=== PATIENT | female | born 1955 | race African-American/Black ===

== ENCOUNTER 2017-08-13 05:28 | Inpatient (IN) ==
[2017-08-13] MEDS ORDERED: VANCOMYCIN INJ 1,000 MG in SODIUM CHLORIDE 0.9% 250 ML IV ONE ×2 (06:00→23:00)
[2017-08-13] MEDS ORDERED: ceFAZolin 2,000 MG in PREMIX 1 EACH IV ONE (06:00)
[2017-08-13] MEDS ORDERED: VANCOMYCIN 1,000 MG VIAL ONE (06:06)
[2017-08-13] MEDS ORDERED: LACTATED RINGERS 1,000 ML IV SCH (08:00)
[2017-08-13] MEDS ORDERED: MIDAZOLAM 10 MG/2 ML VIAL ONE (08:48)
[2017-08-13] MEDS ORDERED: ePHEDrine 50 MG/ML AMP ONE (08:48)
[2017-08-13] MEDS ORDERED: SUFentanil 250 MCG/5 ML AMP ONE (08:49)
[2017-08-13] MEDS ORDERED: PANTOPRAZOLE 40 MG TABLET PO ONE ×2 (09:41→10:00)
[2017-08-13] MEDS ORDERED: TRANEXAMIC ACID 1,000 MG/10 ML VIAL ONE (12:26)
[2017-08-13] MEDS ORDERED: MAGNESIUM HYDROXIDE SUSP 30 ML UDCUP PO PRN (13:50)
[2017-08-13] MEDS ORDERED: MORPHINE 4 MG/1 ML VIAL IV PRN (13:50)
[2017-08-13] MEDS ORDERED: oxyCODONE IR 5 MG TABLET PO PRN ×2 (13:50)
[2017-08-13] MEDS ORDERED: ONDANSETRON 4 MG/2 ML VIAL IV PRN ×2 (13:50→14:14)
[2017-08-13] MEDS ORDERED: FLUTICASONE 50 MCG NASAL SPRAY 16 GM BOTTLE BOTH NARES PRN (13:52)
[2017-08-13] MEDS ORDERED: ONDANSETRON 4 MG/2 ML VIAL ONE (14:02)
[2017-08-13] MEDS ORDERED: MORPHINE 10 MG/1 ML VIAL ONE (14:02)
[2017-08-13] MEDS: MORPHINE 10 MG/1 ML VIAL IV PRN ×3 (14:03→14:20)
[2017-08-13] MEDS ORDERED: SEVOFLURANE 1 UNIT/15 MINUTE INH ONE (14:16)
[2017-08-13] MEDS ORDERED: PROPOFOL 200 MG/20 ML VIAL IV ONE (14:16)
[2017-08-13] MEDS ORDERED: LIDOCAINE 1% 5 ML VIAL ONE (14:16)
[2017-08-13] MEDS ORDERED: ROCURONIUM 100 MG/10 ML VIAL IV ONE (14:17)
[2017-08-13] MEDS ORDERED: NEOSTIGMINE 10 MG/10 ML VIAL ONE (14:17)
[2017-08-13] MEDS ORDERED: SUCCINYLCHOLINE 200 MG/10 ML VIAL ONE (14:17)
[2017-08-13] MEDS ORDERED: fentaNYL 100 MCG/2 ML VIAL ONE (14:17)
[2017-08-13] MEDS ORDERED: ACETAMINOPHEN 1,000 MG/100 ML VIAL IV ONE (14:18)
[2017-08-13] MEDS ORDERED: GLYCOPYRROLATE 0.4 MG/2 ML VIAL ONE (14:18)
[2017-08-13] MEDS ORDERED: MIDAZOLAM 2 MG/2 ML VIAL ONE (14:35)
[2017-08-13] MEDS ORDERED: ROPIVACAINE 0.5% 30 ML VIAL ONE (15:10)
[2017-08-13] MEDS: MORPHINE 4 MG/1 ML VIAL IV PRN ×2 (17:00→21:11)
[2017-08-13] MEDS: KETOROLAC 30 MG/1 ML VIAL IV SCH ×2 (17:10→21:11)
[2017-08-13] MEDS: FUROSEMIDE 40 MG TABLET PO SCH (18:29)
[2017-08-13] MEDS: ACETAMINOPHEN 500 MG TABLET PO SCH ×2 (18:30→23:20)
[2017-08-13] MEDS: ZALEPLON 5 MG CAPSULE PO SCH (21:11)
[2017-08-13] MEDS: DOCUSATE SODIUM 100 MG CAPSULE PO SCH (21:11)
[2017-08-13] MEDS: ceFAZolin 2,000 MG in PREMIX 1 EACH IV SCH (23:23)
[2017-08-14] MEDS: ceFAZolin 2,000 MG in PREMIX 1 EACH IV SCH (02:51)
[2017-08-14] MEDS: KETOROLAC 30 MG/1 ML VIAL IV SCH ×2 (03:59→10:36)
[2017-08-14] MEDS: ACETAMINOPHEN 500 MG TABLET PO SCH ×2 (06:19→11:52)
[2017-08-14 06:58] LABS: Calcium 8.3 MG/DL (8.5-10.1); Osmolality,Calculated 274.7 MOS/KG (273-304); Potassium 4.6 MMOL/L (3.5-5.1)
[2017-08-14] MEDS: POTASSIUM CHLORIDE INJ 20 MEQ in LACTATED RINGERS 1,000 ML IV SCH ×3 (07:53→07:55)
[2017-08-14] MEDS: FUROSEMIDE 40 MG TABLET PO SCH ×2 (08:04→16:08)
[2017-08-14] MEDS: DOCUSATE SODIUM 100 MG CAPSULE PO SCH ×2 (08:04→21:06)
[2017-08-14] MEDS: PANTOPRAZOLE 40 MG TABLET PO SCH (08:04)
[2017-08-14 08:05] LABS: Basophils % 0.1 % (0.0-0.8); Eosinophils # 0.1 10*3/uL (0.0-0.87); Eosinophils % 1.7 % (0.00-10.9); Hematocrit 35.8 VOL% (35.7-47.0); Hemoglobin 11.3 GM/DL (12.0-16.0); Immature Granulocytes % 0.4 %; Immature Granulocytes Absolute 0.03 #; Lymphocytes # 0.6 10*3/uL (1.4-4.0); Lymphocytes % 6.8 % (21.3-54.2); Mean Corpuscular HGB Conc 31.6 GM/DL (32-36); Mean Corpuscular Hemoglobin 29 PG (27-34); Mean Corpuscular Volume 91.1 FL (87-102); Mean Platelet Volume 10.5 FL (9.6-12.0); Monocytes # 0.5 10*3/uL (0.11-0.8); Monocytes % 6.2 % (1.7-12.7); Neutrophils % 84.8 % (38.7-73.9); Platelet Count 238 T/CUMM (130-400); Red Blood Count 3.93 MC/CUMM (3.8-5.5); Red Cell Distribution Width 13.3 % (9.3-17.3); White Blood Count 8.3 T/CUMM (4-12)
[2017-08-14] MEDS: VALSARTAN 160 MG TABLET PO SCH (09:15)
[2017-08-14] MEDS: amLODIPine 10 MG TABLET PO SCH (09:15)
[2017-08-14] MEDS ORDERED: PANTOPRAZOLE 40 MG TABLET PO ONE (10:00)
[2017-08-14] MEDS: FONDAPARINUX 2.5 MG/0.5 ML SYRINGE SUBCUT SCH (10:05)
[2017-08-14] MEDS: diphenhydrAMINE CAP 25 MG CAPSULE PO PRN ×2 (10:05→17:14)
[2017-08-14] MEDS: CELECOXIB 200 MG CAPSULE PO SCH (21:06)
[2017-08-14] MEDS: ZALEPLON 5 MG CAPSULE PO SCH (21:06)
[2017-08-15] MEDS: diphenhydrAMINE CAP 25 MG CAPSULE PO PRN ×2 (05:56→14:19)
[2017-08-15 06:07] LABS: Basophils % 0.1 % (0.0-0.8); Eosinophils # 0.2 10*3/uL (0.0-0.87); Eosinophils % 1.6 % (0.00-10.9); Hematocrit 34.6 VOL% (35.7-47.0); Hemoglobin 10.9 GM/DL (12.0-16.0); Immature Granulocytes % 0.4 %; Immature Granulocytes Absolute 0.04 #; Lymphocytes # 0.6 10*3/uL (1.4-4.0); Lymphocytes % 6.4 % (21.3-54.2); Mean Corpuscular HGB Conc 31.5 GM/DL (32-36); Mean Corpuscular Hemoglobin 29 PG (27-34); Mean Corpuscular Volume 91.5 FL (87-102); Mean Platelet Volume 10.4 FL (9.6-12.0); Monocytes # 0.5 10*3/uL (0.11-0.8); Monocytes % 5.3 % (1.7-12.7); Neutrophils # 8.6 10*3/uL (1.4-7.4); Neutrophils % 86.2 % (38.7-73.9); Platelet Count 218 T/CUMM (130-400); Red Blood Count 3.78 MC/CUMM (3.8-5.5); Red Cell Distribution Width 13.7 % (9.3-17.3)
[2017-08-15] MEDS: FONDAPARINUX 2.5 MG/0.5 ML SYRINGE SUBCUT SCH (09:16)
[2017-08-15] MEDS: FUROSEMIDE 40 MG TABLET PO SCH ×2 (09:16→16:35)
[2017-08-15] MEDS: VALSARTAN 160 MG TABLET PO SCH (09:16)
[2017-08-15] MEDS: amLODIPine 10 MG TABLET PO SCH (09:16)
[2017-08-15] MEDS: PANTOPRAZOLE 40 MG TABLET PO SCH (09:16)
[2017-08-15] MEDS: DOCUSATE SODIUM 100 MG CAPSULE PO SCH ×2 (09:16→21:18)
[2017-08-15] MEDS: ZALEPLON 5 MG CAPSULE PO SCH (21:19)
[2017-08-15] MEDS: CELECOXIB 200 MG CAPSULE PO SCH (21:19)
[2017-08-16] MEDS: diphenhydrAMINE CAP 25 MG CAPSULE PO PRN (06:15)
[2017-08-16 06:26] LABS: Basophils % 0.1 % (0.0-0.8); Eosinophils # 0.2 10*3/uL (0.0-0.87); Eosinophils % 1.7 % (0.00-10.9); Hematocrit 32.2 VOL% (35.7-47.0); Hemoglobin 10.1 GM/DL (12.0-16.0); Immature Granulocytes % 0.5 %; Immature Granulocytes Absolute 0.05 #; Lymphocytes # 0.7 10*3/uL (1.4-4.0); Lymphocytes % 7.4 % (21.3-54.2); Mean Corpuscular HGB Conc 31.4 GM/DL (32-36); Mean Corpuscular Hemoglobin 29 PG (27-34); Mean Corpuscular Volume 91.7 FL (87-102); Mean Platelet Volume 10.8 FL (9.6-12.0); Monocytes # 0.4 10*3/uL (0.11-0.8); Monocytes % 4.2 % (1.7-12.7); Neutrophils # 8.7 10*3/uL (1.4-7.4); Neutrophils % 86.1 % (38.7-73.9); Platelet Count 214 T/CUMM (130-400); Red Blood Count 3.51 MC/CUMM (3.8-5.5); Red Cell Distribution Width 13.8 % (9.3-17.3)
[2017-08-16] MEDS: amLODIPine 10 MG TABLET PO SCH (10:32)
[2017-08-16] MEDS: FONDAPARINUX 2.5 MG/0.5 ML SYRINGE SUBCUT SCH (10:32)
[2017-08-16] MEDS: PANTOPRAZOLE 40 MG TABLET PO SCH (10:32)
[2017-08-16] MEDS: VALSARTAN 160 MG TABLET PO SCH (10:33)
[2017-08-16] MEDS: FUROSEMIDE 40 MG TABLET PO SCH (10:33)
[2017-08-16] MEDS: DOCUSATE SODIUM 100 MG CAPSULE PO SCH (10:33)
[2017-08-16 11:12] VITALS: BP 146/90
== END 2017-08-16 11:50 | disposition home health service (06) | DRG 470 ==
LOC: N.OR 05:28 → N.SDSINP 05:31 → N.3E 16:14
PROVIDERS: ADMIT Orthopaedic Surgery; ATTEND Orthopaedic Surgery

== ENCOUNTER 2020-10-05 16:36 | Observation (INO) ==
[2020-10-05] MEDS ORDERED: ACETAMINOPHEN 325 MG TABLET PO ONE (17:40)
[2020-10-05] MEDS ORDERED: methylPREDNISolone SOD SUC 125 MG/2 ML VIAL IV STA (17:40)
[2020-10-05] MEDS ORDERED: SODIUM CHLORIDE 0.9% 1,000 ML IV STA (17:40)
[2020-10-05] MEDS ORDERED: FAMOTIDINE 20 MG/2 ML VIAL IV STA (17:40)
[2020-10-05] MEDS ORDERED: diphenhydrAMINE 50 MG/1 ML VIAL IV STA ×2 (17:40→20:07)
[2020-10-05 18:59] LABS: Eosinophils % 0.1 % (0.00-10.9); Hematocrit 41.7 VOL% (35.7-47.0); Hemoglobin 12.8 GM/DL (12.0-16.0); Immature Granulocytes % 0.4 %; Immature Granulocytes Absolute 0.04 #; Lymphocytes # 0.3 10*3/uL (1.4-4.0); Lymphocytes % 3.2 % (21.3-54.2); Mean Corpuscular HGB Conc 30.7 GM/DL (32-36); Mean Corpuscular Volume 90.5 FL (87-102); Mean Platelet Volume 10.4 FL (9.6-12.0); Monocytes % 2.6 % (1.7-12.7); Neutrophils % 93.7 % (38.7-73.9); Platelet Count 266 T/CUMM (130-400); Red Blood Count 4.61 MC/CUMM (3.8-5.5); Red Cell Distribution Width 14.6 % (9.3-17.3); White Blood Count 9.2 T/CUMM (4-12)
[2020-10-05 19:37] LABS: Eosinophils 1 % (0-10); Lymphocytes 3 % (20-55); Segmented Neutrophils 93 % (50-85); Total Cells Counted 100
[2020-10-05 19:38] LABS: Platelet Estimate Adequate
[2020-10-05 19:39] LABS: Albumin 3.3 G/DL (3.4-5.0); Bilirubin,Total 0.7 MG/DL (0.20-1.00); Calcium 8.8 MG/DL (8.5-10.1); Osmolality,Calculated 277.8 MOS/KG (273-304); Potassium 3.8 MMOL/L (3.5-5.1); Total Protein 6.5 G/DL (6.4-8.2)
[2020-10-05] MEDS ORDERED: ASPIRIN 325 MG TABLET PO STA (20:07)
[2020-10-05] MEDS ORDERED: GLUCAGON 1 MG VIAL IM PRN (21:19)
[2020-10-05] MEDS ORDERED: DEXTROSE 50% 25 GM/50 ML VIAL IV PRN (21:19)
[2020-10-05 21:23] LABS: Bacteria,Urine Occasional /HPF (Few); Bilirubin,Urine Negative (Negative); Blood, Urine Moderate mg/dL (Negative); Glucose,Urine (UA) Negative (Negative); Hyaline Casts,Urine 2 /LPF (0-3); Ketones,Urine Negative (Negative); Mucus,Urine Occasional /LPF (Occasional); Nitrite,Urine Negative (Negative); Protein,Urine Negative; RBC,Urine 7 /HPF (0-4); Squamous Epithelial Cell,Urine Occasional /HPF (0-10); Urine Appearance CLOUDY (Clear); Urine Color Yellow (Yellow); Urine Specific Gravity 1.016 (1.001-1.035); Urine Urobilinogen < 2.0 EU/DL (0.2-1.0)
[2020-10-05] MEDS ORDERED: guaiFENesin/DM ER 600-30 MG TABLET PO PRN (21:25)
[2020-10-05] MEDS ORDERED: ONDANSETRON 4 MG/2 ML VIAL IV PRN (21:25)
[2020-10-05] MEDS ORDERED: CALCIUM CARBONATE CHEW 500 MG TABLET PO PRN (21:25)
[2020-10-05] MEDS ORDERED: ACETAMINOPHEN 325 MG TABLET PO PRN (21:25)
[2020-10-05] MEDS ORDERED: diphenhydrAMINE CAP 25 MG CAPSULE PO PRN (21:25)
[2020-10-05] MEDS ORDERED: NICOTINE 21 MG/24 HR PATCH TRANSDERM PRN (21:25)
[2020-10-05] MEDS ORDERED: SODIUM CHLORIDE 0.9% 1,000 ML IV SCH (21:30)
[2020-10-05] MEDS ORDERED: ZOLPIDEM 5 MG TABLET PO PRN (23:00)
[2020-10-06] MEDS: ALBUTEROL/IPRATROPIUM 3 ML NEB RESP TX SCH ×2 (00:02→07:20)
[2020-10-06] MEDS ORDERED: methylPREDNISolone SOD SUC 40 MG/1 ML VIAL IV SCH (05:30)
[2020-10-06] MEDS ORDERED: FAMOTIDINE INJ 40 MG in SODIUM CHLORIDE 0.9% 100 ML IV SCH (05:30)
[2020-10-06 09:01] VITALS: BP 163/79
[2020-10-06] MEDS ORDERED: Fluticasone Furoate-Vilanterol [Breo Ellipta] 100-25 mcg/dose INH SCH (10:25)
[2020-10-06] MEDS ORDERED: ALBUTEROL/IPRATROPIUM 3 ML NEB RESP TX PRN (10:25)
[2020-10-06] MEDS ORDERED: amLODIPine 10 MG TABLET PO SCH (10:25)
[2020-10-06] MEDS ORDERED: LOSARTAN 50 MG TABLET PO SCH (10:27)
[2020-10-06] MEDS ORDERED: SPIRONOLACTONE 25 MG TABLET PO SCH (10:29)
[2020-10-06] MEDS ORDERED: [UNRECOGNIZED DRUG - OTHER] PO SCH (12:00)
[2020-10-07] MEDS ORDERED: PANTOPRAZOLE 40 MG TABLET PO SCH (10:25)
== END 2020-10-06 11:50 | disposition home or self-care (01) ==
LOC: N.EDINP 16:36 → N.ED 16:36 → N.4E 21:15 → SUATTDRO 21:19 → N.4E 21:52
PROVIDERS: ADMIT Hospitalist; ATTEND Hospitalist

== ENCOUNTER 2021-05-08 05:42 | Inpatient (IN) ==
[2021-05-08] MEDS ORDERED: VANCOMYCIN 1,000 MG VIAL ONE (05:57)
[2021-05-08] MEDS ORDERED: VANCOMYCIN INJ 1,000 MG in SODIUM CHLORIDE 0.9% 250 ML IV ONE (07:00)
[2021-05-08] MEDS ORDERED: carvediloL 25 MG TABLET ONE (07:17)
[2021-05-08] MEDS ORDERED: carvediloL 25 MG TABLET PO ONE (07:24)
[2021-05-08] MEDS: LACTATED RINGERS 1,000 ML IV SCH ×4 (07:40→21:04)
[2021-05-08] MEDS ORDERED: DIAZEPAM 5 MG TABLET PO ONE (07:55)
[2021-05-08] MEDS ORDERED: GABAPENTIN 400 MG CAPSULE PO ONE (07:55)
[2021-05-08] MEDS ORDERED: ACETAMINOPHEN 500 MG TABLET PO ONE (07:55)
[2021-05-08] MEDS ORDERED: BACITRACIN OINT 0.9 GM PACK TOP ONE (10:29)
[2021-05-08] MEDS ORDERED: fentaNYL 100 MCG/2 ML VIAL ONE ×2 (10:35→12:33)
[2021-05-08] MEDS ORDERED: diphenhydrAMINE 50 MG/1 ML VIAL ONE (10:38)
[2021-05-08] MEDS ORDERED: FAMOTIDINE 20 MG/2 ML VIAL IV ONE (10:38)
[2021-05-08] MEDS ORDERED: methylPREDNISolone SOD SUC 125 MG/2 ML VIAL ONE (10:38)
[2021-05-08] MEDS ORDERED: GLYCOPYRROLATE 0.4 MG/2 ML VIAL ONE ×2 (11:38→13:31)
[2021-05-08] MEDS ORDERED: FUROSEMIDE 40 MG TABLET PO PRN (12:10)
[2021-05-08] MEDS ORDERED: ALBUTEROL/IPRATROPIUM 3 ML NEB RESP TX PRN (12:10)
[2021-05-08] MEDS ORDERED: TRANEXAMIC ACID 1,000 MG/10 ML VIAL ONE (12:12)
[2021-05-08] MEDS ORDERED: GLUCAGON 1 MG VIAL IM PRN (12:12)
[2021-05-08] MEDS ORDERED: MAGNESIUM HYDROXIDE SUSP 30 ML UDCUP PO PRN (12:13)
[2021-05-08] MEDS ORDERED: PHENYLEPHRINE 1 MG/10 ML SYRINGE IV ONE ×2 (12:21)
[2021-05-08] MEDS ORDERED: HYDROmorphone 1 MG/1 ML SYRINGE IV PRN ×2 (12:23)
[2021-05-08] MEDS ORDERED: hydrALAZINE 20 MG/1 ML VIAL ONE (12:38)
[2021-05-08] MEDS ORDERED: propofoL 200 MG/20 ML VIAL IV ONE (13:21)
[2021-05-08] MEDS ORDERED: DESFLURANE 1 UNIT/15 MINUTE INH ONE (13:21)
[2021-05-08] MEDS ORDERED: SUCCINYLCHOLINE 200 MG/10 ML VIAL ONE (13:21)
[2021-05-08] MEDS ORDERED: ROCURONIUM 50 MG/5 ML VIAL IV ONE (13:21)
[2021-05-08] MEDS ORDERED: NEOSTIGMINE 10 MG/10 ML VIAL ONE (13:31)
[2021-05-08] MEDS ORDERED: MEPERIDINE 25 MG/1 ML VIAL ONE (14:07)
[2021-05-08] MEDS: MEPERIDINE 25 MG/1 ML VIAL IV PRN ×2 (14:07→14:17)
[2021-05-08] MEDS ORDERED: HYDROmorphone 2 MG/1 ML VIAL ONE (14:34)
[2021-05-08] MEDS ORDERED: DEXTROSE 10% 250 ML BAG IV PRN (15:45)
[2021-05-08] MEDS ORDERED: HYDROmorphone 2 MG/1 ML VIAL IV PRN (16:00)
[2021-05-08] MEDS: HYDROmorphone 2 MG/1 ML VIAL IV PRN ×2 (16:05→21:17)
[2021-05-08] MEDS: INSULIN LISPRO 100 UNIT/ML SUBCUT SCH ×2 (16:18→22:32)
[2021-05-08] MEDS: carvediloL 25 MG TABLET PO SCH (17:25)
[2021-05-08] MEDS ORDERED: VANCOMYCIN INJ 1,000 MG in SODIUM CHLORIDE 0.9% 250 ML IV SCH (20:30)
[2021-05-08] MEDS ORDERED: MONTELUKAST 10 MG TABLET PO SCH (21:00)
[2021-05-08] MEDS: ceFAZolin 2,000 MG/50 ML DUPLEX IV SCH (21:03)
[2021-05-08] MEDS: ZALEPLON 5 MG CAPSULE PO SCH (21:06)
[2021-05-08] MEDS: amLODIPine 10 MG TABLET PO SCH (21:06)
[2021-05-08] MEDS: LOSARTAN 50 MG TABLET PO SCH (21:06)
[2021-05-09] MEDS: diphenhydrAMINE CAP 25 MG CAPSULE PO PRN ×3 (02:50→16:31)
[2021-05-09] MEDS: LACTATED RINGERS 1,000 ML IV SCH ×2 (04:34→12:32)
[2021-05-09] MEDS: ceFAZolin 2,000 MG/50 ML DUPLEX IV SCH (04:35)
[2021-05-09 04:54] LABS: Basophils % 0.1 % (0.0-0.8); Hematocrit 37.9 VOL% (35.7-47.0); Immature Granulocytes % 0.5 %; Immature Granulocytes Absolute 0.08 #; Lymphocytes # 0.4 10*3/uL (1.4-4.0); Lymphocytes % 2.3 % (21.3-54.2); Mean Corpuscular HGB Conc 31.7 GM/DL (32-36); Mean Corpuscular Volume 90.2 FL (87-102); Monocytes % 2.2 % (1.7-12.7); Neutrophils % 94.9 % (38.7-73.9); Platelet Count 261 T/CUMM (130-400); Red Cell Distribution Width 13.6 % (9.3-17.3); White Blood Count 16.9 T/CUMM (4-12)
[2021-05-09] MEDS: HYDROmorphone 2 MG/1 ML VIAL IV PRN ×2 (05:05→13:05)
[2021-05-09 05:16] LABS: Calcium 8.6 MG/DL (8.5-10.1); Hypochromia Slight; Lymphocytes 1 % (20-55); Microcytosis Slight; Osmolality,Calculated 274.1 MOS/KG (273-304); Platelet Estimate Adequate; Potassium 4.3 MMOL/L (3.5-5.1); Segmented Neutrophils 95 % (50-85); Total Cells Counted 100
[2021-05-09] MEDS: FERROUS SULFATE 325 MG TABLET PO SCH ×2 (07:39→09:33)
[2021-05-09] MEDS: SPIRONOLACTONE 25 MG TABLET PO SCH ×2 (07:39→09:33)
[2021-05-09] MEDS: MULTIVITAMIN (CENTRUM) TABLET PO SCH ×2 (07:39→09:33)
[2021-05-09] MEDS: PANTOPRAZOLE 40 MG TABLET PO SCH ×2 (07:40→09:34)
[2021-05-09] MEDS: INSULIN LISPRO 100 UNIT/ML SUBCUT SCH ×4 (07:56→20:52)
[2021-05-09] MEDS: carvediloL 25 MG TABLET PO SCH ×2 (08:53→16:31)
[2021-05-09] MEDS ORDERED: PANTOPRAZOLE 40 MG TABLET PO SCH (09:00)
[2021-05-09] MEDS: BREO ELLIPTA INH SCH (09:34)
[2021-05-09] MEDS: methylPREDNISolone SOD SUC 40 MG/1 ML VIAL IV SCH (13:08)
[2021-05-09] MEDS: FAMOTIDINE 20 MG TABLET PO SCH (13:08)
[2021-05-09] MEDS: MONTELUKAST 10 MG TABLET PO SCH ×2 (13:08→20:52)
[2021-05-09] MEDS: LEVOFLOXACIN INJ 250 MG/50 ML PREMIX IV SCH (13:08)
[2021-05-09] MEDS: LOSARTAN 50 MG TABLET PO SCH (20:51)
[2021-05-09] MEDS: amLODIPine 10 MG TABLET PO SCH (20:52)
[2021-05-09] MEDS: ZALEPLON 5 MG CAPSULE PO SCH (20:55)
[2021-05-10] MEDS: methylPREDNISolone SOD SUC 40 MG/1 ML VIAL IV SCH (00:06)
[2021-05-10] MEDS ORDERED: HYDROmorphone 1 MG/1 ML SYRINGE IV PRN ×2 (02:16→02:17)
[2021-05-10 05:29] LABS: Basophils % 0.1 % (0.0-0.8); Hematocrit 35.3 VOL% (35.7-47.0); Hemoglobin 11.3 GM/DL (12.0-16.0); Immature Granulocytes % 0.8 %; Immature Granulocytes Absolute 0.11 #; Lymphocytes # 0.4 10*3/uL (1.4-4.0); Lymphocytes % 2.7 % (21.3-54.2); Mean Corpuscular Volume 90.3 FL (87-102); Mean Platelet Volume 10.4 FL (9.6-12.0); Monocytes % 1.3 % (1.7-12.7); Neutrophils % 95.1 % (38.7-73.9); Platelet Count 256 T/CUMM (130-400); Red Blood Count 3.91 MC/CUMM (3.8-5.5); Red Cell Distribution Width 13.6 % (9.3-17.3); White Blood Count 13.5 T/CUMM (4-12)
[2021-05-10 05:46] LABS: Calcium 8.6 MG/DL (8.5-10.1); Osmolality,Calculated 281.8 MOS/KG (273-304); Potassium 4.1 MMOL/L (3.5-5.1)
[2021-05-10 06:23] LABS: Hypochromia Slight; Lymphocytes 1 % (20-55); Microcytosis Slight; Platelet Estimate Adequate; Segmented Neutrophils 99 % (50-85); Total Cells Counted 100
[2021-05-10 07:57] VITALS: BP 145/89
[2021-05-10] MEDS: diphenhydrAMINE CAP 25 MG CAPSULE PO PRN (08:27)
[2021-05-10] MEDS: PANTOPRAZOLE 40 MG TABLET PO SCH (08:27)
[2021-05-10] MEDS: MULTIVITAMIN (CENTRUM) TABLET PO SCH (08:27)
[2021-05-10] MEDS: SPIRONOLACTONE 25 MG TABLET PO SCH (08:27)
[2021-05-10] MEDS: FERROUS SULFATE 325 MG TABLET PO SCH (08:27)
[2021-05-10] MEDS: FAMOTIDINE 20 MG TABLET PO SCH (08:27)
[2021-05-10] MEDS: MONTELUKAST 10 MG TABLET PO SCH (08:27)
[2021-05-10] MEDS: carvediloL 25 MG TABLET PO SCH (08:27)
[2021-05-10] MEDS: INSULIN LISPRO 100 UNIT/ML SUBCUT SCH (08:28)
[2021-05-10] MEDS: BREO ELLIPTA INH SCH (11:50)
[2021-05-10] MEDS: LEVOFLOXACIN INJ 250 MG/50 ML PREMIX IV SCH (11:51)
[2021-05-14] MEDS ORDERED: SEMAGLUTIDE SUBCUT SCH (12:15)
== END 2021-05-10 11:25 | disposition home or self-care (01) | DRG 483 ==
LOC: N.OR 05:42 → N.SDSINP 05:44 → EDSTATUS 15:00 → N.3E 15:06
PROVIDERS: ADMIT Orthopaedic Surgery; ATTEND Orthopaedic Surgery

== ENCOUNTER 2021-12-20 19:18 | Observation (INO) ==
[2021-12-20] MEDS ORDERED: diphenhydrAMINE 50 MG/1 ML VIAL IV STA (19:52)
[2021-12-20] MEDS ORDERED: methylPREDNISolone SOD SUC 125 MG/2 ML VIAL IV STA (19:52)
[2021-12-20] MEDS ORDERED: FAMOTIDINE 20 MG/2 ML VIAL IV STA (19:52)
[2021-12-20] MEDS ORDERED: EPINEPHrine 1 MG/ML VIAL SUBCUT STA (19:52)
[2021-12-20 20:09] LABS: Eosinophils % 0.3 % (0.00-10.9); Hematocrit 41.6 VOL% (35.7-47.0); Hemoglobin 13.3 GM/DL (12.0-16.0); Immature Granulocytes % 0.6 %; Immature Granulocytes Absolute 0.02 #; Lymphocytes # 0.2 10*3/uL (1.4-4.0); Lymphocytes % 7.3 % (21.3-54.2); Mean Platelet Volume 10.1 FL (9.6-12.0); Monocytes # 0.1 10*3/uL (0.11-0.8); Neutrophils % 88.8 % (38.7-73.9); Platelet Count 208 T/CUMM (130-400); Red Blood Count 4.57 MC/CUMM (3.8-5.5); Red Cell Distribution Width 13.7 % (9.3-17.3); White Blood Count 3.3 T/CUMM (4-12)
[2021-12-20 20:30] LABS: Alanine Aminotransferase 17 U/L (13-56); Albumin 3.4 G/DL (3.4-5.0); Alkaline Phosphatase 124 U/L (45-117); Aspartate Amino Transferase 16 U/L (0-37); Blood Urea Nitrogen 19 MG/DL (7-18); Calcium 8.3 MG/DL (8.5-10.1); Carbon Dioxide 24 MMOL/L (21-32); Chloride 107 MMOL/L (98-107); Glucose 154 MG/DL (74-106); Osmolality,Calculated 283.4 MOS/KG (273-304); Potassium 3.4 MMOL/L (3.5-5.1); Sodium 140 MMOL/L (136-145)
[2021-12-20] MEDS ORDERED: BICILLIN LA 1,200,000 UNIT/2 ML SYRINGE IM STA (20:47)
[2021-12-20] MEDS ORDERED: ACETAMINOPHEN 325 MG TABLET PO PRN (21:37)
[2021-12-20 21:52] LABS: Bilirubin,Urine Negative (Negative); Blood, Urine Negative (Negative); Glucose,Urine (UA) Negative (Negative); Ketones,Urine Negative (Negative); Mucus,Urine Occasional /LPF (Occasional); Nitrite,Urine Negative (Negative); Protein,Urine 100 mg/dL (Negative); RBC,Urine <1 /HPF (0-4); Squamous Epithelial Cell,Urine Occasional /HPF (0-10); Urine Appearance Slightly Hazy (Clear); Urine Color Yellow (Yellow); Urine Specific Gravity 1.016 (1.001-1.035); Urine Urobilinogen < 2.0 eU/dL (<2.0)
[2021-12-20] MEDS ORDERED: POTASSIUM CHLORIDE 20 MEQ TABLET PO STA (21:55)
[2021-12-20] MEDS ORDERED: FUROSEMIDE 40 MG TABLET PO PRN (21:56)
[2021-12-20] MEDS ORDERED: ACETAMINOPHEN 500 MG TABLET PO ONE (21:56)
[2021-12-20] MEDS ORDERED: LACTATED RINGERS 1,000 ML IV SCH (22:00)
[2021-12-20] MEDS: MONTELUKAST 10 MG TABLET PO SCH (22:14)
[2021-12-20] MEDS ORDERED: ALBUTEROL/IPRATROPIUM 3 ML NEB RESP TX PRN (23:00)
[2021-12-20] MEDS ORDERED: IBUPROFEN 400 MG TABLET PO ONE (23:49)
[2021-12-21] MEDS ORDERED: LEVOFLOXACIN INJ 750 MG/150 ML PREMIX IV SCH (01:30)
[2021-12-21] MEDS: diphenhydrAMINE CAP 25 MG CAPSULE PO SCH ×5 (01:41→23:20)
[2021-12-21 05:00] LABS: Basophils % 0.1 % (0.0-0.8); Hematocrit 37.7 VOL% (35.7-47.0); Hemoglobin 12.1 GM/DL (12.0-16.0); Immature Granulocytes % 0.5 %; Immature Granulocytes Absolute 0.07 #; Lymphocytes # 0.3 10*3/uL (1.4-4.0); Lymphocytes % 2.4 % (21.3-54.2); Mean Corpuscular HGB Conc 32.1 GM/DL (32-36); Mean Corpuscular Volume 92.6 FL (87-102); Mean Platelet Volume 10.5 FL (9.6-12.0); Monocytes # 0.3 10*3/uL (0.11-0.8); Monocytes % 2.2 % (1.7-12.7); Neutrophils % 94.8 % (38.7-73.9); Platelet Count 204 T/CUMM (130-400); Red Blood Count 4.07 MC/CUMM (3.8-5.5); Red Cell Distribution Width 13.8 % (9.3-17.3); White Blood Count 13.2 T/CUMM (4-12)
[2021-12-21 05:22] LABS: Band Neutrophils 16 % (0-10); Eosinophils 1 % (0-10); Lymphocytes 1 % (20-55); Metamyelocytes 1 %; Microcytosis Slight; Platelet Estimate Normal; Total Cells Counted 100
[2021-12-21] MEDS: methylPREDNISolone SOD SUC 125 MG/2 ML VIAL IV SCH ×3 (05:25→21:32)
[2021-12-21] MEDS ORDERED: NON-FORMULARY MEDICATION (Semaglutide [Ozempic] 1 mg/dose (2 mg/1.5 mL) Pen Injector) SUBCUT SCH (09:00)
[2021-12-21] MEDS ORDERED: DEXTROSE 10% 250 ML BAG IV PRN (09:38)
[2021-12-21] MEDS ORDERED: GLUCAGON 1 MG VIAL IM PRN (09:38)
[2021-12-21] MEDS: carvediloL 25 MG TABLET PO SCH ×2 (10:48→17:38)
[2021-12-21] MEDS: MULTIVITAMIN (CENTRUM) TABLET PO SCH (10:48)
[2021-12-21] MEDS: FERROUS SULFATE 325 MG TABLET PO SCH (10:48)
[2021-12-21] MEDS: DICLOFENAC SODIUM 75 MG TABLET PO SCH ×2 (10:48→17:38)
[2021-12-21] MEDS: SPIRONOLACTONE 25 MG TABLET PO SCH (10:48)
[2021-12-21] MEDS: MONTELUKAST 10 MG TABLET PO SCH ×2 (10:48→21:27)
[2021-12-21] MEDS: FAMOTIDINE 20 MG/2 ML VIAL IV SCH ×2 (10:49→21:29)
[2021-12-21] MEDS: ENOXAPARIN 40 MG/0.4 ML SYRINGE SUBCUT SCH (10:49)
[2021-12-21 11:33] LABS: Calcium 8.8 MG/DL (8.5-10.1); Osmolality,Calculated 289.4 MOS/KG (273-304); Potassium 3.8 MMOL/L (3.5-5.1)
[2021-12-21] MEDS ORDERED: LOSARTAN 50 MG TABLET PO SCH (21:00)
[2021-12-21] MEDS ORDERED: amLODIPine 10 MG TABLET PO SCH (21:00)
[2021-12-22 04:58] LABS: Basophils % 0.1 % (0.0-0.8); Hematocrit 34.9 VOL% (35.7-47.0); Immature Granulocytes % 0.4 %; Immature Granulocytes Absolute 0.05 #; Lymphocytes # 0.7 10*3/uL (1.4-4.0); Lymphocytes % 5.2 % (21.3-54.2); Mean Corpuscular HGB Conc 31.5 GM/DL (32-36); Mean Corpuscular Volume 93.1 FL (87-102); Mean Platelet Volume 10.9 FL (9.6-12.0); Monocytes # 0.2 10*3/uL (0.11-0.8); Monocytes % 1.7 % (1.7-12.7); Neutrophils % 92.6 % (38.7-73.9); Platelet Count 200 T/CUMM (130-400); Red Blood Count 3.75 MC/CUMM (3.8-5.5); Red Cell Distribution Width 13.9 % (9.3-17.3); White Blood Count 13.2 T/CUMM (4-12)
[2021-12-22] MEDS ORDERED: LEVOFLOXACIN INJ 500 MG/100 ML PREMIX IV SCH (05:00)
[2021-12-22] MEDS: diphenhydrAMINE CAP 25 MG CAPSULE PO SCH ×2 (05:16→11:04)
[2021-12-22] MEDS: methylPREDNISolone SOD SUC 125 MG/2 ML VIAL IV SCH (05:16)
[2021-12-22 05:25] LABS: Calcium 8.9 MG/DL (8.5-10.1); Osmolality,Calculated 292.3 MOS/KG (273-304); Potassium 3.7 MMOL/L (3.5-5.1)
[2021-12-22 05:42] LABS: Lymphocytes 6 % (20-55); Platelet Estimate Adequate; Total Cells Counted 100
[2021-12-22 07:53] VITALS: BP 156/82
[2021-12-22] MEDS: carvediloL 25 MG TABLET PO SCH (10:41)
[2021-12-22] MEDS: DICLOFENAC SODIUM 75 MG TABLET PO SCH (10:41)
[2021-12-22] MEDS: MONTELUKAST 10 MG TABLET PO SCH (10:41)
[2021-12-22] MEDS: SPIRONOLACTONE 25 MG TABLET PO SCH (10:41)
[2021-12-22] MEDS: MULTIVITAMIN (CENTRUM) TABLET PO SCH (10:41)
[2021-12-22] MEDS: FAMOTIDINE 20 MG/2 ML VIAL IV SCH (10:42)
[2021-12-22] MEDS: ENOXAPARIN 40 MG/0.4 ML SYRINGE SUBCUT SCH (10:42)
[2021-12-22] MEDS ORDERED: predniSONE 10 MG TABLET PO SCH ×2 (11:00→11:30)
[2021-12-22] MEDS: FERROUS SULFATE 325 MG TABLET PO SCH (11:04)
[2021-12-22] MEDS ORDERED: FAMOTIDINE 20 MG TABLET PO SCH (21:00)
[2021-12-23] MEDS ORDERED: MONTELUKAST 10 MG TABLET PO SCH (09:00)
[2021-12-23] MEDS ORDERED: LEVOFLOXACIN 500 MG TABLET PO SCH (09:00)
== END 2021-12-22 11:40 | disposition home or self-care (01) ==
LOC: N.ED 19:18 → N.3E 19:18
PROVIDERS: ADMIT Hospitalist; ATTEND Hospitalist